=== PATIENT | male | born 2005 | race Caucasian/White ===

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

== ENCOUNTER 2024-11-27 18:17 | Emergency (ER) | payer OTHER ==
[2024-11-27 18:39] VITALS: BP 141/91; PULSE 74; RESP 17; TEMP 98.4; BMI 21.5
[2024-11-27] MEDS ORDERED: DIPHTH,PERTUSS(ACELL),TET 0.5 ML DISP.SYRIN IM ONE (19:22)
[2024-11-27] MEDS: DIPHTH,PERTUSS(ACELL),TET 0.5 ML DISP.SYRIN IM ONE (19:26)
== END 2024-11-27 22:47 | disposition home or self-care (01) ==
LOC: JERFT 18:17 → JER 18:17 → JERFT 22:47
PROC: 0HQFXZZ Repair Right Hand Skin, External Approach (ICD-10-PCS; principal; 2024-11-27)
PROC: 3E0234Z Introduction of Serum, Toxoid and Vaccine into Muscle, Percutaneous Approach (ICD-10-PCS; 2024-11-27)
DX: S61.214A Laceration without foreign body of right ring finger without damage to nail, initial encounter (principal); S61.411A Laceration without foreign body of right hand, initial encounter; Z23 Encounter for immunization; W22.09XA Striking against other stationary object, initial encounter
CPT/HCPCS: 12004; 73130-TC-RT-FY; 90471; 90715; 99284-25